=== PATIENT | male | born 1990 | race Caucasian/White ===

== ENCOUNTER 2020-06-29 00:13 | Emergency (ER) | payer OTHER ==
[2020-06-29 00:52] LABS: HEMOGLOBIN 15.3 gm/dl (14.0-17.5); RED BLOOD COUNT 5.12 M/UL (4.20-5.50)
[2020-06-29 01:16] LABS: BUN/CREATININE RATIO 8 (0-10)
[2020-07-06] MEDS ORDERED: VORT10TA PO (08:01)
[2020-07-06] MEDS ORDERED: KLONOPIN0.5 MG PO (08:01)
[2020-07-06] MEDS ORDERED: TIMOPTIC 0.5% OP5 ML OU (08:02)
[2020-07-06] MEDS ORDERED: PROAIR HFA8.5 GM INH (08:02)
[2020-07-06] MEDS ORDERED: PROTONIX 40 MG40 M1 PO (08:03)
== END 2020-06-29 02:54 | disposition home or self-care (01) ==
LOC: ER1 00:13
PROVIDERS: Emergency Medicine
DX: K44.9 Diaphragmatic hernia without obstruction or gangrene (principal); R06.6 Hiccough; J45.909 Unspecified asthma, uncomplicated; K21.9 Gastro-esophageal reflux disease without esophagitis; Z88.0 Allergy status to penicillin; Z88.2 Allergy status to sulfonamides
CPT/HCPCS: 71045; 80053; 85025; 99284; Q9967

== ENCOUNTER 2020-07-01 03:00 | Emergency (ER) | payer OTHER ==
[2020-07-01 04:39] LABS: HEMOGLOBIN 15.6 gm/dl (14.0-17.5); RED BLOOD COUNT 5.18 M/UL (4.20-5.50); WHITE BLOOD COUNT 9.4 K/UL (4.5-11.0)
[2020-07-01 05:01] LABS: BUN/CREATININE RATIO 12 (0-10)
[2020-07-01] MEDS ORDERED: REGLAN10 MG PO (07:24)
[2020-07-06] MEDS ORDERED: VORT10TA PO (08:01)
[2020-07-06] MEDS ORDERED: KLONOPIN0.5 MG PO (08:01)
[2020-07-06] MEDS ORDERED: PROAIR HFA8.5 GM INH (08:02)
[2020-07-06] MEDS ORDERED: TIMOPTIC 0.5% OP5 ML OU (08:02)
[2020-07-06] MEDS ORDERED: PROTONIX 40 MG40 M1 PO (08:03)
== END 2020-07-01 07:37 | disposition home or self-care (01) ==
LOC: ER1 03:00
PROVIDERS: Emergency Medicine
DX: K44.9 Diaphragmatic hernia without obstruction or gangrene (principal); R06.6 Hiccough; J45.909 Unspecified asthma, uncomplicated; Z88.0 Allergy status to penicillin; Z88.2 Allergy status to sulfonamides
CPT/HCPCS: 80053; 85025; 93005; 96374; 99284; J2765; Q9967

== ENCOUNTER → 2020-07-06 | Day surgery (SDC) | payer OTHER ==
[~2020-07-06] MED LIST: KLONOPIN0.5 MG PO; PROAIR HFA8.5 GM INH; PROTONIX 40 MG40 M1 PO; REGLAN10 MG PO; TIMOPTIC 0.5% OP5 ML OU; VORT10TA PO
== END | disposition home or self-care (01) ==
LOC: OR 07:14
PROVIDERS: Internal Medicine Gastroenterology
PROC: 0DB78ZX Excision of Stomach, Pylorus, Via Natural or Artificial Opening Endoscopic, Diagnostic (ICD-10-PCS; 2020-07-06)
PROC: 0DB68ZX Excision of Stomach, Via Natural or Artificial Opening Endoscopic, Diagnostic (ICD-10-PCS; 2020-07-06)
PROC: 0DB48ZX Excision of Esophagogastric Junction, Via Natural or Artificial Opening Endoscopic, Diagnostic (ICD-10-PCS; 2020-07-06)
PROC: 0DB38ZX Excision of Lower Esophagus, Via Natural or Artificial Opening Endoscopic, Diagnostic (ICD-10-PCS; principal; 2020-07-06 09:15)
DX: K21.00 Gastro-esophageal reflux disease with esophagitis, without bleeding (principal); K44.9 Diaphragmatic hernia without obstruction or gangrene; K31.9 Disease of stomach and duodenum, unspecified; J45.909 Unspecified asthma, uncomplicated; F43.10 Post-traumatic stress disorder, unspecified; E66.9 Obesity, unspecified; Z68.31 Body mass index [BMI] 31.0-31.9, adult; Z88.6 Allergy status to analgesic agent; Z88.0 Allergy status to penicillin; Z88.2 Allergy status to sulfonamides; Z87.891 Personal history of nicotine dependence; Z79.899 Other long term (current) drug therapy; Z20.822 Contact with and (suspected) exposure to COVID-19
CPT/HCPCS: J2704; J3010; J7040